=== PATIENT | female | born 1975 | race Caucasian/White ===

== ENCOUNTER 2018-03-21 21:17 | Emergency (ER) | payer SELFPAY ==
[2018-03-21 21:26] VITALS: BP 136/77; PULSE 97; RESP 20; TEMP 36.1; O2SAT 98; BMI 34.7
[2018-03-21 21:38] VITALS: BP 130/90; PULSE 102; O2SAT 97
[2018-03-21] MEDS: EPINEPHrine 1 MG/ML AMPUL 0.5 MG IM (21:47)
[2018-03-21] MEDS: methylPREDNISolone 125 MG/2 ML VIAL IV (21:47)
--- NOTE | 2018-03-21 21:49 | ED_ITS ---
HPI - Allergic Reaction General Chief complaint: Allergic Reaction Stated complaint: ALLERGIC REACTION Time Seen by Provider: 03/21/18 21:33 Source: patient Mode of arrival: ambulatory Limitations: no limitations History of Present Illness HPI narrative: The patient arrives with an apparent allergic reaction. About 1- 1.5 hours prior to arrival she developed a rash. She has no wheezing or shortness of breath. She was seen by paramedics, she was given an injection of epinephrine. She also took 50 mg of Benadryl p.o.. She arrives now with recurrence of rash, particularly on her neck. She has no muffled voice, airway tightness, chest pain or difficulty breathing. She is not feeling weak or dizzy. 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 The patient had pot stickers prior to coming here. Apparently the paramedics are familiar with the restaurant they were in before symptoms started and the paramedics are assuming she was exposed to shrimp in the cooking process. The patient is unsure. The patient has not recently been ill. She has had no cough or congestion, she denies headaches or fever. She has a history of bladder surgery, hysterectomy, and multiple pelvic surgeries involving cancer. She has no current GI symptoms associated with the other complaints. Related Data Previous Rx's Medication Instructions Recorded epinephrine [EpiPen 2-Wander] 0.6 mg IM Q10M PRN #2 each 03/21/18 Allergies Allergy/AdvReac Type Severity Reaction Status Date / Time banana Allergy Severe Anaphylaxis Verified 03/21/18 21:42 carbamazepine [From Tegretol] Allergy Severe Anaphylaxis Verified 03/21/18 21:41 shrimp Allergy Severe Anaphylaxis Verified 03/21/18 21:43 cephalexin [From Keflex] Allergy Unknown Verified 03/21/18 21:44 egg AdvReac Mild Verified 03/21/18 21:42 honey AdvReac Verified 03/21/18 21:43 Review of Systems Review of Systems ROS Unobtainable: All systems reviewed & are unremarkable except as noted in HPI and below Eyes Denies eye discharge ENT Ears, Nose, Mouth, and Throat: Denies vertigo, Denies dizziness and Denies mouth lesions Cardiovascular Denies chest pain, Denies diaphoresis, Denies irregular heart rhythm and Denies dyspnea Respiratory Denies dyspnea, Denies stridor and Denies wheezing Gastrointestinal Gastrointestinal: Denies abdominal pain, Denies cramping, Denies diarrhea and Denies vomiting Musculoskeletal Denies tingling Integumentary/Breasts Denies pruritus and Reports erythema Neurologic Denies vertigo, Denies dizziness and Denies tingling Allergic/Immunologic Denies wheezing PFSH Medical History Acute anaphylaxis (Acute) H/O: hysterectomy (Acute) Pelvic cancer (Acute) Surgical History H/O pelvic surgery (Acute) Social History Smoking Status: Never smoker Exam Initial Vital Signs Initial Vital Signs: Vital Signs Temperature 97 F L 03/21/18 21:26 Pulse Rate 97 H 03/21/18 21:26 Respiratory Rate 20 03/21/18 21:26 Blood Pressure 136/77 03/21/18 21:26 Pulse Oximetry 98 03/21/18 21:26 Const General: cooperative, healthy appearing, comfortable, well developed, well groomed and No acute distress HENMT Head: normocephalic and atraumatic Nose: external nose normal and No nasal discharge Face and sinus: face symmetric and No dry mucous membranes Mouth: oral mucosae normal and moist mucous membranes Throat: posterior oropharynx normal Eyes Conjunctivae: conjunctivae normal Pupils: PERRL EOM: EOM intact bilaterally Neck Neck: normal visual inspection, full ROM and other (Erythematous rash across the anterior neck.) Chest Chest: normal inspection of the chest Resp Effort & Inspection: normal respiratory effort, able to speak in complete sentences, no respiratory distress and no use of accessory muscles Auscultation: clear to auscultation bilaterally, no rales, no rhonchi and no wheezes Cardio Rate: regular rate Rhythm: regular rhythm Heart Sounds: no click, no gallops, no murmurs and no rubs Pulses: normal peripheral pulses GI Inspection: non-distended Palpation: soft, no hepatosplenomegaly, No guarding and No tender Auscultation: normal bowel sounds Back/Spine/Pelvis Back: normal to inspection Skin General: other (Macular erythema across her anterior neck and upper chest.) Neuro General: alert, oriented x3, gait normal and no focal motor deficits Speech: speech normal Extrem General: full ROM, no clubbing, cyanosis or edema, no pedal edema and no calf tenderness Course Course Narrative: Her symptoms have totally resolved. No rash. No airway tightness. No cough or dyspnea. Her airways are clear. She has Benadryl at home. She will be given a prescription for EpiPen. Orders Ordered: Discontinued Medications Epinephrine HCl (Adrenalin) 0.5 mg IM NOW ONE Stop: 03/21/18 21:46 Last Admin: 03/21/18 21:47 Dose: 0.5 mg Methylprednisolone (Solu-Medrol 125 Mg Vial) 125 mg IV NOW ONE Stop: 03/21/18 21:39 Last Admin: 03/21/18 21:47 Dose: 125 mg Vital Signs - 8 hr 03/21/18 21:26 03/21/18 21:38 03/21/18 22:56 Temperature 97 F L Pulse Rate 97 H 102 H 98 H Respiratory Rate 20 20 Blood Pressure 136/77 122/78 Blood Pressure [Left Arm] 130/90 Pulse Oximetry 98 97 100 Discharge Plan Departure Patient Disposition: Home Clinical Impression: Allergic reaction Discharge Date/Time: 03/21/18 22:56 Interventions: ED Discharge Assessment Last Done: 03/21/18 22:56 Instructions: DI for General Allergic Reactions Activity Restrictions/Additional Instructions: FU of a severe allergic reaction, use an EpiPen right away. Repeat if need be. Take Benadryl 50 mg orally. If symptoms persist, you need to report to an ER. Prescriptions: New epinephrine [EpiPen 2-Wander] 0.3 mg/0.3 mL auto-injector 0.6 mg IM Q10M PRN (Reason: anaphylaxis) Qty: 2 RF: 0
[2018-03-21 22:56] VITALS: BP 122/78; PULSE 98; RESP 20; O2SAT 100
== END 2018-03-21 22:56 | disposition home or self-care (01) ==
PROVIDERS: Emergency Provider Emergency Medicine
DX: T78.40XA Allergy, unspecified, initial encounter (principal)
CPT/HCPCS: 96372; 96374; 99282; 99284; J0171; J2930